=== PATIENT | male | born 1980 | race Caucasian/White ===

== ENCOUNTER 2021-01-22 04:32 | Outpatient (CLI) | payer MEDICAID, SELFPAY ==
[2021-01-22 11:34] LABS: HCT 43.6 % (40.0-50.0); HGB 14.8 g/dL (13.5-17.5); MCHC 33.9 % (32.0-36.0); MCV 91.2 fL (80-95); MPV 9.8 fL (8.0-11.0); Platelet Count 221 10^3/uL (130-400); RBC 4.78 10^6/uL (4.36-5.78); RDW 11.5 % (11.8-14.1); RDW-SD 38.9 fL; WBC 4.52 10^3/uL (4.4-10.8)
[2021-01-22 11:37] LABS: Hemoglobin A1C 5.7 % (<5.7)
[2021-01-22 12:25] LABS: ALT 41 U/L (16-63); AST 22 U/L (15-37); Albumin 3.7 g/dL (3.4-5.0); Alkaline Phosphatase 54 U/L (46-116); Anion Gap 3.5 mmol/L (3-11); BUN 14 mg/dL (7-18); Bilirubin, Total 0.4 mg/dL (0.2-1.0); CO2 28.5 mmol/L (21.0-32.0); CREATININE 0.9 mg/dL (0.70-1.30); Calculated LDL 124 mg/dL (<100); Chloride 105 mmol/L (98-107); Cholesterol 206 mg/dL (<200); Glucose 124 mg/dL (74-106); HDL Cholesterol 52 mg/dL (40-60); Magnesium 1.9 mg/dL (1.8-2.4); Sodium 137 mmol/L (136-145); Total Protein 7.2 g/dL (6.4-8.2); Triglyceride 152 mg/dL (<150); Vitamin B12 535 pg/mL (193-986)
[2021-01-22 12:26] LABS: Folate > 20.0 ng/mL (8.6-20.0)
[2021-01-22 12:33] LABS: C-Reactive Protein 0.14 mg/dL (0.0-0.3)
[2021-01-22 16:41] LABS: PSA, Screening 0.2 ng/mL (0.0-2.5)
[2021-01-24 09:22] LABS: Lipoprotein (a) 10 mg/dL (<=30)
== END 2021-01-22 04:33 | disposition home or self-care (01) ==
LOC: LBO 04:32
PROVIDERS: Visit Provider Naturopath
DX: R25.2 Cramp and spasm (principal); R51.9 Headache, unspecified; Z82.49 Family history of ischemic heart disease and other diseases of the circulatory system; Z12.5 Encounter for screening for malignant neoplasm of prostate
CPT/HCPCS: 36415; 80053; 80061; 83695; 84153; 85027; 82607; 82746; 83036; 83735; 86140

== ENCOUNTER 2021-07-23 03:58 | Outpatient (CLI) | payer MEDICAID, SELFPAY ==
[2021-07-23 08:39] LABS: Hemoglobin A1C 5.6 % (<5.7)
[2021-07-23 08:53] LABS: Calculated LDL 149 mg/dL (<100); Cholesterol 213 mg/dL (<200); HDL Cholesterol 54 mg/dL (40-60); Triglyceride 53 mg/dL (<150)
[2021-07-25 13:26] LABS: Homocysteine 6.5 umol/L (5.0-13.9)
[2021-07-25 16:30] LABS: 25-Hydroxy D Total 33 ng/mL; 25-Hydroxy D2 <4.0 ng/mL; 25-Hydroxy D3 33 ng/mL
[2021-07-26 08:56] LABS: Insulin 12.4 uIU/mL (<29.0)
== END 2021-07-23 03:59 | disposition home or self-care (01) ==
LOC: LBO 03:58
PROVIDERS: Visit Provider Naturopath
DX: E55.9 Vitamin D deficiency, unspecified (principal); R73.03 Prediabetes; E78.5 Hyperlipidemia, unspecified
CPT/HCPCS: 36415; 80061; 82306; 83090; 83036; 83525

== ENCOUNTER 2021-11-24 13:14 | Emergency (ER) | payer MEDICAID, SELFPAY ==
[2021-11-24] VITALS (18 sets, daily range): BP systolic 102–125; BP diastolic 58–79; PULSE 73–88; RESP 15–38; TEMP 36.2–36.6; O2SAT 91–96
--- NOTE | 2021-11-24 13:15 | DI.CT_ITS ---
Exam(s) CT CHEST PE CTA EXAM: CT CHEST PE CTA CLINICAL HISTORY: Covid positive, R/O PE. TECHNIQUE: Imaging Protocol: Axial CT angiography was performed with multi-slice acquisition and mu lti-planar and/or 3D reconstructions. CONTRAST MATERIAL: Intravenous: Omnipaque 350 Contrast volume:structured data in ml COMPARISON: No exams were available for comparison FINDINGS: CT angiography of the chest was performed with intravenous infusion of 100 cc of Omnipaque 350. There are extensive bilateral multi focal ground-glass and consolidative opacities. The pattern is c onsistent with COVID pneumonia in a patient who is COVID positive. No pleural effusion. Tracheobronc hial tree appears intact. No evidence of pulmonary embolic disease. Thoracic aorta is of normal diameter, no thoracic aortic an eurysm or dissection, major branch vessels appear intact. No mediastinal or hilar adenopathy. Images obtained through the upper abdomen show unremarkable appearance of the visualized portions of the liver, spleen, pancreas, adrenals, and kidneys. IMPRESSION: Multifocal pneumonitis. No evidence of pulmonary embolic disease. RADIATION DOSE DELIVERED: 619.39mGy.cm Total DLP 619.39mGy.cm Total DLP CTDIvol DATA REPOSITORY: All CT scans at this facility are submitted to the National Radiology Data Registry (NRDR) Dose Index Registry (DIR) with the [employer] ([employer]). RADIATION OPTIMIZATION: All CT scans at this facility use at least one of these dose optimization te chniques: automated exposure control; mA and/or kV adjustment per patient size (includes targeted exa ms where dose is matched to clinical indication); or iterative reconstruction.
--- NOTE | 2021-11-24 13:15 | RT.EKG_ITS ---
APPROVED REPORT Exam: Resting ECG Reason for Exam: SOB Patient Location: E HR:90 bpm ECG Measurements Heart Rate 90 AXIS OR 149 P 23 QRSd 90 QRS 23 QT 346 T 19 QTc 423 Conclusion Sinus rhythm...normal P axis, V-rate 60- 99. Sinus. No STEMI. I have reviewed and interpreted ECG and agree with software generated interpretation.
[2021-11-24 13:39] LABS: Lactate 1.4 mmol/L (0.6-1.4)
[2021-11-24] MEDS: Normal Saline 1,000 ML 1000 ML IV (13:39)
[2021-11-24 13:45] LABS: Abs Immature Grans 0.01 10^3/uL (0.0-0.06); Absolute Basophil Count 0.01 10^3/uL (0.0-0.2); Absolute Eosinophil Count 0.01 10^3/uL (0.0-0.7); Absolute Lymphocyte Count 1.38 10^3/uL (1.2-3.4); Absolute Monocyte Count 0.26 10^3/uL (0.1-0.8); Absolute Neutrophil Count 2.94 10^3/uL (1.2-6.7); Basophils % 0.2; Eosinophils % 0.2; HCT 45.3 % (40.0-50.0); HGB 14.9 g/dL (13.5-17.5); Immature Grans % 0.2; Lymphocytes % 29.9; MCH 30.1 pg (27.0-33.0); MCHC 32.9 % (32.0-36.0); MCV 91.5 fL (80-95); Monocytes % 5.6; Neutrophils % 63.9; Nucleated RBC 0 %; Platelet Count 190 10^3/uL (130-400); RBC 4.95 10^6/uL (4.36-5.78); RDW 11.5 % (11.8-14.1); RDW-SD 38.9 fL; WBC 4.61 10^3/uL (4.4-10.8)
--- NOTE | 2021-11-24 13:45 | W.ED.GENAD ---
Discharge Plan Disposition Patient Disposition: HOME Condition: Stable Discharge Details Clinical Impression: Pneumonia due to 2019 novel coronavirus Primary Care Provider: Marley,Local ED Provider: Omi Hogan Home Meds and New Rx's Prescriptions: New doxycycline hyclate 100 mg capsule 100 mg PO BID 10 Days Qty: 20 RF: 0 Discharge Instructions Instructions: Pneumonia (ED), COVID-19 (Coronavirus Disease 2019) (ED) Additional Instructions: Please continue to quarantine and then developed for the next 5 to 7 days. Take the antibiotic as prescribed twice daily as prescribed. Eat yogurt or take a probiotic while on the antibiotics. Continue to take vitamin such as vitamin D3, vitamin C and zinc. He received a monoclonal antibodies while in the department today and your first antibiotic dose. Use the albuterol inhaler 1 or 2 puffs daily every 4-6 hours as needed for trouble breathing or wheezing. Please take Tylenol or Ibuprofen with food every 4-6 hours as needed for pain and swelling. Use the pulse oximeter given to you, monitor your O2 levels and if your O2 levels are consistently below 90% then please return to the ER. Thank you for allowing me to care for you and God Bless you! Discharge Data Discharge Date/Time-TO BE ENTERED AT DEPARTURE: 11/24/21 17:02 Medical Decision Making <Priscila June - Last Filed: 11/25/21 16:43> 41-year-old male presents to the ER with chief complaint of increased shortness of breath, fatigue, bloody productive sputum with cough wheezing and 101 fever. Patient is Covid positive he tested positive on 19 November. He reports headache and diarrhea over the last 4 days. He has no past medical history of meds or allergies. He has been taking vitamins at home and last took some Tylenol yesterday. He does qualify for monoclonal antibodies due to BMI of 35, Covid work-up ordered including CBC, CMP, D-dimer, procalcitonin, lactate, blood cultures x2, ferritin, CT chest rule out PE. Liter normal saline ordered. CBC shows no leukocytosis, D-dimer is elevated at 1052, lactate 1.4, sodium is 135, potassium 3.6 chloride 97, GFR greater than 60. LDH is 331, initial troponin within normal limits C-reactive protein elevated at 5.17 albumin 3.1 procalcitonin is pending at this time. CTA Chest: FINDINGS: CT angiography of the chest was performed with intravenous infusion of 100 cc of Omnipaque 350. There are extensive bilateral multi focal ground-glass and consolidative opacities. The pattern is consistent with COVID pneumonia in a patient who is COVID positive. No pleural effusion. Tracheobronchial tree appears intact. No evidence of pulmonary embolic disease. Thoracic aorta is of normal diameter, no thoracic aortic aneurysm or dissection, major branch vessels appear intact. No mediastinal or hilar adenopathy. Images obtained through the upper abdomen show unremarkable appearance of the visualized portions of the liver, spleen, pancreas, adrenals, and kidneys. IMPRESSION: Multifocal pneumonitis. No evidence of pulmonary embolic disease. Plan is to send patient home with albuterol inhaler, and Doxycycline. Patient does have a pulse oximeter at home and is able to monitor O2 Saturations. Discussed strict return instructions. Care is to be handed off to oncoming provider Omi Herrera pending observation period after MAB infusion. Patient has remained hemodynamically stable throughout stay and O2 Sat has not dropped lower than 91% on Room air. Lab Data Lab results reviewed: Yes I reviewed the patient's lab results. Lab results narrative: 11/24/21 14:00 Blood Blood Culture - Pending 11/24/21 13:27 Blood Blood Culture - Pending Laboratory Tests Range/Units 11/24/21 11/24/21 11/24/21 13:30 13:30 13:30 WBC (4.4-10.8) 10^3/uL 4.61 RBC (4.36-5.78) 10^6/uL 4.95 Hgb (13.5-17.5) g/dL 14.9 Hct (40.0-50.0) % 45.3 MCV (80-95) fL 91.5 MCH (27.0-33.0) pg 30.1 MCHC (32.0-36.0) % 32.9 RDW (11.8-14.1) % 11.5 L Plt Count (130-400) 10^3/uL 190 MPV (8.0-11.0) fL 10.0 Immature Gran % 0.2 Neutrophils % 63.9 Lymphocytes % 29.9 Monocytes % 5.6 Eosinophils % 0.2 Basophils % 0.2 Nucleated RBC % % 0 Absolute Neutrophils (1.2-6.7) 10^3/uL 2.94 Absolute Lymphocytes (1.2-3.4) 10^3/uL 1.38 Absolute Monocytes (0.1-0.8) 10^3/uL 0.26 Absolute Eosinophils (0.0-0.7) 10^3/uL 0.01 Absolute Basophils (0.0-0.2) 10^3/uL 0.01 D-Dimer (<500) ng/mlFEU VBG Lactate (0.6-1.4) mmol/L 1.4 Sodium (136-145) mmol/L 135 L Potassium (3.5-5.1) mmol/L 3.6 Chloride (98-107) mmol/L 97 L Carbon Dioxide (21.0-32.0) mmol/L 32.0 Anion Gap (3-11) mmol/L 6.0 BUN (7-18) mg/dL 9 Creatinine (0.70-1.30) mg/dL 1.0 Estimated GFR/1.73 m2 (mL/min/1.73m2) >= 60.00 Glucose (74-106) mg/dL 104 Calcium (8.5-10.1) mg/dL 8.6 Total Bilirubin (0.2-1.0) mg/dL 0.4 AST (15-37) U/L 48 H ALT (16-63) U/L 46 Alkaline Phosphatase (46-116) U/L 73 Lactate Dehydrogenase (85-227) U/L 331 H Troponin I (<or=60) ng/L < 50 C-Reactive Protein (0.0-0.3) mg/dL 5.17 H Total Protein (6.4-8.2) g/dL 8.0 Albumin (3.4-5.0) g/dL 3.1 L Range/Units 11/24/21 13:30 WBC (4.4-10.8) 10^3/uL RBC (4.36-5.78) 10^6/uL Hgb (13.5-17.5) g/dL Hct (40.0-50.0) % MCV (80-95) fL MCH (27.0-33.0) pg MCHC (32.0-36.0) % RDW (11.8-14.1) % Plt Count (130-400) 10^3/uL MPV (8.0-11.0) fL Immature Gran % Neutrophils % Lymphocytes % Monocytes % Eosinophils % Basophils % Nucleated RBC % % Absolute Neutrophils (1.2-6.7) 10^3/uL Absolute Lymphocytes (1.2-3.4) 10^3/uL Absolute Monocytes (0.1-0.8) 10^3/uL Absolute Eosinophils (0.0-0.7) 10^3/uL Absolute Basophils (0.0-0.2) 10^3/uL D-Dimer (<500) ng/mlFEU 1052 H VBG Lactate (0.6-1.4) mmol/L Sodium (136-145) mmol/L Potassium (3.5-5.1) mmol/L Chloride (98-107) mmol/L Carbon Dioxide (21.0-32.0) mmol/L Anion Gap (3-11) mmol/L BUN (7-18) mg/dL Creatinine (0.70-1.30) mg/dL Estimated GFR/1.73 m2 (mL/min/1.73m2) Glucose (74-106) mg/dL Calcium (8.5-10.1) mg/dL Total Bilirubin (0.2-1.0) mg/dL AST (15-37) U/L ALT (16-63) U/L Alkaline Phosphatase (46-116) U/L Lactate Dehydrogenase (85-227) U/L Troponin I (<or=60) ng/L C-Reactive Protein (0.0-0.3) mg/dL Total Protein (6.4-8.2) g/dL Albumin (3.4-5.0) g/dL <ABDIFATAH Knowles - Last Filed: 11/24/21 17:01> I assumed care of this 41-year-old gentleman from my colleague SUSIE June awaiting monoclonal antibody infusion and discharged home. Infusion was completed, patient was observed for over 1 hour without any reaction. He remains hemodynamically stable, O2 sat 94% on room air, does not require any supplemental oxygen. Standard discharge and return precautions provided. Patient without additional questions or concerns. Patient to be discharged with the plan set forth by SUSIE June. HPI <Priscila June - Last Filed: 11/25/21 16:43> General Mode of arrival: ambulatory. Date/Time Provider Initiated Documentation: 11/24/21 13:18. Limitations to Documentation: no limitations. Information obtained by: patient, RN notes reviewed and old records reviewed. HPI Narrative: 41-year-old male presents to the ER with chief complaint of increased shortness of breath, fatigue, bloody productive sputum with cough wheezing and 101 fever. Patient is Covid positive he tested positive on 19 November. He reports headache and diarrhea over the last 4 days. He has no past medical history of meds or allergies. He has been taking vitamins at home and last took some Tylenol yesterday. He does qualify for monoclonal antibodies due to BMI of 35, Related Data Home Medications Medication Instructions Recorded Confirmed doxycycline hyclate 100 mg PO BID 10 Days #20 cap 11/24/21 Previous Rx's Medication Instructions Recorded doxycycline hyclate 100 mg PO BID 10 Days #20 cap 11/24/21 Allergies Allergy/AdvReac Type Severity Reaction Status Date / Time No Known Allergies Allergy Unverified 11/24/21 13:24 General Stated Complaint: RespSymp RENA: 3 Review of Systems <Priscila June - Last Filed: 11/25/21 16:43> All systems reviewed & are unremarkable except as noted in HPI and below Constitutional Constitutional: Reports chills, Reports fatigue, Reports fever(s), Reports headache(s) and Reports poor appetite ENT Ears, Nose, Mouth, and Throat: Reports headache(s) Neurologic Neurologic: Reports headache(s) Endocrine Endocrine: Reports fatigue PFSH <Priscila Manuelton - Last Filed: 11/25/21 16:43> All Active Problems (Updated 11/24/21 @ 16:11 by Priscila June) Pneumonia due to 2019 novel coronavirus (Acute) Social History Smoking/Tobacco Use Status: Never Smoking risk assessment performed?: Yes Alcohol Intake: never Substance use type: does not use Exam <Priscila June - Last Filed: 11/25/21 16:43> Narrative Exam Narrative: Constitutional: Alert and oriented x3. Appears stated age. Normal body habitus. Head: Normocephalic, no trauma. Eyes: Pupils PERRL, Red reflex noted, EOM's intact. Eyelids symmetrical without lesions, discharge, or swelling. ENT: Bilateral TM's WNL, External ear normal to inspection, no mastoid TTP, swelling, or erythema, Nasal turbinates WNL, no nasal discharge. Normal dentition, Posterior pharynx WNL, no exudate. Chest: RRR, Normal S1, S2, distal pulses intact. Resp: Lungs diminished to auscultation bilaterally, no wheezes, rales, or rhonchi. Abdomen: Soft, non-distended, Normoactive bowel sounds all 4 quads. Musculoskeletal: Normal gait, 5/5 strength to all four extremities. Skin: No suspicious rashes or lesions. Capillary refill less than 2 sec. Neurologic: Cranial nerves II-XII intact. Alert and oriented x 3. Motor: No deficits noted. Sensory: Intact bilaterally all 4 extremities. Reflexes: DTR's intact bilaterally.. Hematologic/Lymphatic: No ecchymosis, no lymphadenopathy. Course <Priscila June [facility] Filed: 11/25/21 16:43> Vital Signs Vital signs: Vital Signs Temperature 36.5 C 11/24/21 13:21 Pulse 88 11/24/21 13:21 Respiratory Rate 18 11/24/21 13:21 Blood Pressure 125/79 11/24/21 13:21 Pulse Oximetry 91 L 11/24/21 13:21 Temperature 36.5 C 11/24/21 13:21 Temperature Source Temporal Artery Scan 11/24/21 13:21 Pulse 88 11/24/21 13:21 Respiratory Rate 18 11/24/21 13:21 Respiratory Effort 11/24/21 13:31 Respiratory Depth Normal 11/24/21 13:31 Blood Pressure 125/79 11/24/21 13:21 Blood Pressure Position Sitting 11/24/21 13:21 Pulse Oximetry 91 L 11/24/21 13:21 Oxygen Delivery Method Room Air 11/24/21 13:21 Oxygen Flow Rate 0 11/24/21 13:21 Pain Level 3 11/24/21 13:21 Lab/Test Results Lab/Test Results: 11/24/21 13:27 Blood Blood Culture - Pending 11/24/21 13:27 Blood Blood Culture - Pending Laboratory Tests Range/Units 11/24/21 13:30 VBG Lactate (0.6-1.4) mmol/L 1.4 Sign Out <Priscila June - Last Filed: 11/25/21 16:43> Sign Out Data: Sign Out Comment: Pending MAB infusion and disposition. Covid Positive Last updated by Priscila June at 11/24/21 16:05
[2021-11-24 13:59] LABS: ALT 46 U/L (16-63); AST 48 U/L (15-37); Albumin 3.1 g/dL (3.4-5.0); Alkaline Phosphatase 73 U/L (46-116); BUN 9 mg/dL (7-18); Bilirubin, Total 0.4 mg/dL (0.2-1.0); C-Reactive Protein 5.17 mg/dL (0.0-0.3); Calcium 8.6 mg/dL (8.5-10.1); Chloride 97 mmol/L (98-107); Glucose 104 mg/dL (74-106); LDH 331 U/L (85-227); Potassium 3.6 mmol/L (3.5-5.1); Sodium 135 mmol/L (136-145); Troponin I < 50 ng/L (<or=60)
[2021-11-24 14:14] LABS: D-Dimer 1052 ng/mlFEU (<500)
[2021-11-24] MEDS: Omnipaque 350 MG/ML 100 ML BTL IJ (14:20)
[2021-11-24] MEDS: Normal Saline Flush 10 ML SYR IVP ×2 (14:22→16:11)
[2021-11-24 14:28] LABS: Ferritin 853 ng/mL (26-388)
[2021-11-24 14:34] LABS: Procalcitonin < 0.1 ng/mL
[2021-11-24] MEDS: Dexamethasone 10 MG/ML VIAL 6 MG IVP (15:05)
[2021-11-24] MEDS: Acetaminophen 325 MG TAB PO (15:05)
[2021-11-24] MEDS: Doxycycline Hyclate 100 MG, 2 CAPS/BTL PO (15:06)
[2021-11-24] MEDS: Doxycycline Hyclate 100 MG CAP PO (15:06)
[2021-11-24] MEDS: Albuterol HFA 8 GM 60 PUFF INH IH (17:02)
== END 2021-11-24 17:02 | disposition home or self-care (01) ==
PROVIDERS: Registered Nurse Emergency; Emergency Provider Physician Assistant
DX: U07.1 COVID-19 (principal); J12.82 Pneumonia due to coronavirus disease 2019; R06.02 Shortness of breath
CPT/HCPCS: 36415; 71275; 80053; 84145; 87040; 93005; 96361; 96365; 96374; 99285; 82728; 83605; 83615; 84484; 85025; 85379; 86140; 93010; 99284; J1100; J3490

== ENCOUNTER 2022-01-21 01:40 | Outpatient (CLI) | payer MEDICAID, SELFPAY ==
--- NOTE | 2022-01-21 09:15 | RT.EKG_ITS ---
APPROVED REPORT Exam: Resting ECG Reason for Exam: chest pain Patient Location: O HR:66 bpm ECG Measurements Heart Rate 66 AXIS RI 148 P 8 QRSd 90 QRS 20 QT 385 T 21 QTc 405 Conclusion Sinus rhythm...normal P axis, V-rate 60- 99 Normal Electrocardiogram
== END 2022-01-21 01:41 | disposition home or self-care (01) ==
LOC: RT 01:40
PROVIDERS: Visit Provider Naturopath
DX: R07.9 Chest pain, unspecified (principal)
CPT/HCPCS: 93005; 93010

== ENCOUNTER 2022-01-29 04:14 | Outpatient (CLI) | payer MEDICAID, SELFPAY ==
[2022-01-29 09:38] LABS: D-Dimer 155 ng/mlFEU (<500)
[2022-01-29 09:53] LABS: ALT 31 U/L (16-63); AST 14 U/L (15-37); Albumin 3.7 g/dL (3.4-5.0); Alkaline Phosphatase 51 U/L (46-116); Anion Gap 8.3 mmol/L (3-11); BUN 14 mg/dL (7-18); Bilirubin, Total 0.5 mg/dL (0.2-1.0); CO2 27.7 mmol/L (21.0-32.0); Calcium 8.7 mg/dL (8.5-10.1); Calculated LDL 117 mg/dL (<100); Chloride 102 mmol/L (98-107); Cholesterol 183 mg/dL (<200); Glucose 94 mg/dL (74-106); HDL Cholesterol 54 mg/dL (40-60); Potassium 4.2 mmol/L (3.5-5.1); Sodium 138 mmol/L (136-145); Total Protein 7.1 g/dL (6.4-8.2); Triglyceride 63 mg/dL (<150)
[2022-01-29 10:14] LABS: Creatine Kinase 104 U/L (39-308); NT-proBNP 55 pg/mL (<300)
[2022-01-30 10:48] LABS: Homocysteine 7.9 umol/L (5.0-13.9)
== END 2022-01-29 04:15 | disposition home or self-care (01) ==
LOC: LBO 04:14
PROVIDERS: Visit Provider Naturopath
DX: E78.5 Hyperlipidemia, unspecified (principal); E55.9 Vitamin D deficiency, unspecified; R07.9 Chest pain, unspecified
CPT/HCPCS: 36415; 80053; 80061; 82306; 82550; 83090; 83880; 85379

== ENCOUNTER 2022-04-03 18:10 | Outpatient (CLI) | payer MEDICAID, SELFPAY ==
[2022-04-03 15:08] LABS: Abs Immature Grans 0.01 10^3/uL (0.0-0.06); Absolute Basophil Count 0.02 10^3/uL (0.0-0.2); Absolute Eosinophil Count 0.21 10^3/uL (0.0-0.7); Absolute Lymphocyte Count 1.61 10^3/uL (1.2-3.4); Absolute Monocyte Count 0.51 10^3/uL (0.1-0.8); Absolute Neutrophil Count 3.51 10^3/uL (1.2-6.7); Basophils % 0.3; Eosinophils % 3.6; HCT 43.2 % (40.0-50.0); HGB 14.5 g/dL (13.5-17.5); Immature Grans % 0.2; Lymphocytes % 27.4; MCH 30.5 pg (27.0-33.0); MCHC 33.6 % (32.0-36.0); MCV 91 fL (80-95); MPV 9.8 fL (8.0-11.0); Monocytes % 8.7; Neutrophils % 59.8; Platelet Count 234 10^3/uL (130-400); RBC 4.76 10^6/uL (4.36-5.78); RDW 11.7 % (11.8-14.1); RDW-SD 39.2 fL; WBC 5.87 10^3/uL (4.4-10.8)
[2022-04-03 16:00] LABS: ALT 34 U/L (16-63); AST 21 U/L (15-37); Albumin 3.6 g/dL (3.4-5.0); Alkaline Phosphatase 85 U/L (46-116); Anion Gap 7.2 mmol/L (3-11); BUN 15 mg/dL (7-18); Bilirubin, Total 0.2 mg/dL (0.2-1.0); CO2 28.8 mmol/L (21.0-32.0); Calcium 8.4 mg/dL (8.5-10.1); Chloride 102 mmol/L (98-107); Glucose 130 mg/dL (74-106); Sodium 138 mmol/L (136-145); Total Protein 7.1 g/dL (6.4-8.2)
[2022-04-05 12:35] LABS: M. pneumoniae Ab, IgG Positive (Negative); M. pneumoniae Ab, IgM Negative (Negative)
== END 2022-04-03 18:11 | disposition home or self-care (01) ==
LOC: LBO 18:12
PROVIDERS: Visit Provider Naturopath
DX: R05.1 Acute cough (principal)
CPT/HCPCS: 36415; 80053; 85025; 86738

== ENCOUNTER → 2022-04-03 19:02 | Outpatient (CLI) | payer MEDICAID, SELFPAY ==
--- NOTE | 2022-04-03 14:40 | DI.RAD_ITS ---
Exam(s) XR CHEST 2V PA LATERAL EXAM: XR CHEST 2V PA LATERAL CLINICAL HISTORY: COUGH, R05, NEG COVID TEST TECHNIQUE: 2D digital imaging was performed. COMPARISON: No exams were available for comparison FINDINGS: MEDIASTINUM: Normal. HEART: Normal. PULMONARY VASCULATURE: Normal. LUNGS: Clear. PLEURAL SPACE: No pleural effusion or pneumothorax. BONE:Unremarkable for age. IMPRESSION: No acute abnormality. DATA REPOSITORY: RADIATION DOSE DELIVERED:
== END ==
PROVIDERS: Visit Provider Naturopath
DX: R05.1 Acute cough (principal)
CPT/HCPCS: 71046